=== PATIENT | male | born 1950 | race Caucasian/White ===

== ENCOUNTER 2024-07-29 11:16 | Inpatient (IN) | payer OTHER ==
[2024-07-29 11:40] VITALS: BMI 29.5
[2024-07-29] MEDS ORDERED: ACETAMINOPHEN 325 MG TABLET (FP) ONE (12:41)
[2024-07-29] MEDS: ACETAMINOPHEN 325 MG TABLET (FP) PO ONE (12:43)
[2024-07-29 12:57] LABS: MCHC 31.9 g/dl (32.3-36.5); MEAN PLT VOLUME 9.8 fl (9.4-12.4); RDW 13.4 % (12.2-16.6)
[2024-07-29 12:58] LABS: HEMATOCRIT 40.8 % (40.1-51.0); MEAN CELL VOLUME 89.1 fl (79.0-92.2); PLATELET COUNT 127 x10^3/uL (163-337)
[2024-07-29 13:05] LABS: INR 1.57 (0.83-1.09); PROTHROMBIN TIME (PATIENT) 17.1 SEC (9.7-13.0)
[2024-07-29 13:08] LABS: ACTIVATED PTT 32.6 SECONDS (25.2-36.5)
[2024-07-29 13:20] LABS: POTASSIUM 5.1 mmol/L (3.5-5.1)
[2024-07-29 13:22] LABS: ALBUMIN 3.5 g/dl (3.4-5.0); BLOOD UREA NITROGEN 14.5 mg/dL (7-18); CALCIUM 9.3 mg/dL (8.5-10.1); MAGNESIUM 1.7 mg/dL (1.8-2.4)
[2024-07-29 13:27] LABS: TOT PROT 6.7 g/dl (6.4-8.2)
[2024-07-29 13:32] LABS: BILIRUBIN,TOTAL 0.9 mg/dL (0.2-1)
[2024-07-29] MEDS ORDERED: MAGNESIUM SULFATE IN WATER 2 GM/50 ML IVPB IVPB ONE (14:10)
[2024-07-29] MEDS: MAGNESIUM SULF 50% (8.12 MEQ/2 ML-1 GM VIAL) IVPB ONE (14:22)
[2024-07-29 14:23] LABS: EPI CELLS 4 /uL (0-25.1); HYALINE CASTS 1 /uL (0-3.1); URINE APPEARANCE CLEAR; URINE BACTERIA 5 /uL (0-1359); URINE BILIRUBIN NEGATIVE (NEGATIVE); URINE COLOR YELLOW; URINE GLUCOSE (UA) NEGATIVE (NEGATIVE); URINE KETONE TRACE (NEGATIVE); URINE LEUK ESTERASE NEGATIVE (NEGATIVE); URINE NITRITE NEGATIVE (NEGATIVE); URINE PROTEIN 2+ (NEGATIVE); URINE RBC 21 /uL (0-23.9); URINE WBC 10 /uL (0-25.8)
[2024-07-29] MEDS: FUROSEMIDE 40 MG/4 ML INJECTABLE VIAL IVPUSH ONE (16:59)
[2024-07-29] MEDS: ACETAMINOPHEN 1000 MG/100 ML BAG IVPB PRN (21:31)
[2024-07-29] MEDS: ATORVASTATIN CA 10 MG TABLET (FP) PO SCH (21:32)
[2024-07-29] MEDS: DOCUSATE SODIUM 100 MG CAPSULE (FP) PO SCH (21:32)
[2024-07-29] MEDS: APIXABAN 5 MG TABLET PO SCH (21:32)
[2024-07-30 06:38] LABS: HEMOGLOBIN 12.3 g/dL (13.7-17.5)
[2024-07-30 06:40] LABS: ABSOLUTE IMMATURE GRANULOCYTES 0.01 x10^3/uL (0.0-0.031); BASOPHILS # 0.02 x10^3/uL (0.01-0.08); EOSINOPHIL % 2.3 % (0.8-7.0); EOSINOPHILS # 0.12 x10^3/uL (0.04-0.54); HEMATOCRIT 38.4 % (40.1-51.0); MEAN CELL VOLUME 87.7 fl (79.0-92.2); MEAN PLT VOLUME 10.1 fl (9.4-12.4); MONOCYTE # 0.57 x10^3/uL (0.30-0.82); PLATELET COUNT 132 x10^3/uL (163-337); RDW 13.2 % (12.2-16.6)
[2024-07-30 06:58] LABS: POTASSIUM 3.6 mmol/L (3.5-5.1)
[2024-07-30 07:00] LABS: CALCIUM 8.6 mg/dL (8.5-10.1)
[2024-07-30 07:01] LABS: BLOOD UREA NITROGEN 15.9 mg/dL (7-18)
[2024-07-30 07:04] LABS: CREATININE 0.8 mg/dL (0.55-1.3)
[2024-07-30] MEDS: metoPROLOL SUCCINATE 25 MG TAB.SR.24H (FP) PO SCH (09:27)
[2024-07-30] MEDS ORDERED: amLODIPine BESYLATE 5 MG TABLET (FP) PO SCH (10:00)
[2024-07-30 10:16] LABS: ERYTHROCYTE SEDIMENTATION RATE 7 mm/hr (0-20)
[2024-07-30] MEDS: FUROSEMIDE 40 MG/4 ML INJECTABLE VIAL IVPUSH SCH (11:58)
[2024-07-31] MEDS: EMPAGLIFLOZIN (JARDIANCE) 10 MG TABLET PO SCH (06:43)
[2024-07-31 06:58] LABS: ABSOLUTE IMMATURE GRANULOCYTES 0.01 x10^3/uL (0.0-0.031); BASOPHILS # 0.02 x10^3/uL (0.01-0.08); EOSINOPHIL % 1.6 % (0.8-7.0); HEMATOCRIT 41.3 % (40.1-51.0); HEMOGLOBIN 13.3 g/dL (13.7-17.5); MCHC 32.2 g/dl (32.3-36.5); MEAN CELL VOLUME 86.6 fl (79.0-92.2); MEAN PLT VOLUME 9.6 fl (9.4-12.4); MONOCYTE # 0.54 x10^3/uL (0.30-0.82); MONOCYTE % 8.8 % (5.3-12.2); PLATELET COUNT 139 x10^3/uL (163-337); RDW 13.2 % (12.2-16.6)
[2024-07-31 07:17] LABS: POTASSIUM 3.4 mmol/L (3.5-5.1)
[2024-07-31 07:22] LABS: ALBUMIN 3.6 g/dl (3.4-5.0); BLOOD UREA NITROGEN 17.1 mg/dL (7-18); CALCIUM 9.2 mg/dL (8.5-10.1); MAGNESIUM 1.6 mg/dL (1.8-2.4)
[2024-07-31 07:26] LABS: CREATININE 0.9 mg/dL (0.55-1.3); PHOSPHOROUS 2.6 mg/dL (2.5-4.9)
[2024-07-31 07:27] LABS: TOT PROT 6.7 g/dl (6.4-8.2)
[2024-07-31] MEDS ORDERED: POTASSIUM CHLORIDE ORAL LIQUID 20 MEQ/15 ML PO ONE (08:45)
[2024-07-31] MEDS: MAGNESIUM 2GM/50ML STERILE WATER IVPB IVPB ONE (09:02)
[2024-07-31] MEDS: POTASSIUM CHLORIDE ORAL LIQUID 20 MEQ/15 ML PO ONE (09:03)
[2024-07-31] MEDS: LOSARTAN POTASSIUM 50 MG TABLET PO SCH (09:07)
[2024-07-31] MEDS: SPIRONOLACTONE 25 MG TABLET PO SCH (09:08)
[2024-07-31] MEDS: metoPROLOL SUCCINATE 25 MG TAB.SR.24H (FP) PO ONE (13:24)
[2024-07-31 17:01] LABS: METHADONE, UR NEGATIVE (NEGATIVE); PHENCYCLIDINE,URINE NEGATIVE (NEGATIVE); URINE AMPHETAMINES NEGATIVE (NEGATIVE); URINE BENZODIAZEPINES NEGATIVE (NEGATIVE)
[2024-07-31 17:02] LABS: COCAINE, UR NEGATIVE (NEGATIVE)
[2024-07-31 17:05] LABS: OPIATES, URI NEGATIVE (NEGATIVE); URINE BARBITURATES NEGATIVE (NEGATIVE)
[2024-08-01 06:34] LABS: HEMATOCRIT 43.6 % (40.1-51.0); MCHC 32.1 g/dl (32.3-36.5); MEAN CELL VOLUME 87.9 fl (79.0-92.2); PLATELET COUNT 142 x10^3/uL (163-337); RDW 13.4 % (12.2-16.6)
[2024-08-01 06:51] LABS: POTASSIUM 3.9 mmol/L (3.5-5.1)
[2024-08-01 06:58] LABS: CALCIUM 9.4 mg/dL (8.5-10.1)
[2024-08-01 06:59] LABS: ALBUMIN 3.5 g/dl (3.4-5.0); BLOOD UREA NITROGEN 15.2 mg/dL (7-18)
[2024-08-01 07:02] LABS: CREATININE 0.9 mg/dL (0.55-1.3)
[2024-08-01 07:04] LABS: BILIRUBIN,TOTAL 1.2 mg/dL (0.2-1); TOT PROT 6.7 g/dl (6.4-8.2)
[2024-08-01 08:48] VITALS: BP 124/80; PULSE 80; RESP 18; TEMP 99.1
[2024-08-01] MEDS ORDERED: metoPROLOL SUCCINATE 25 MG TAB.SR.24H (FP) PO ONE (12:00)
== END 2024-08-01 11:37 | disposition home or self-care (01) | DRG 291 ==
LOC: JER 11:16 → JERBED 14:16 → INTOOBSV 14:16 → UNDOADMOB 14:16 → JERBED 14:41 → J4W 16:10 → OBSVTOIN 07-31 12:50
PROVIDERS: ADMIT Internal Medicine; ATTEND Internal Medicine
DX: I11.0 Hypertensive heart disease with heart failure (principal); I50.41 Acute combined systolic (congestive) and diastolic (congestive) heart failure; I31.39 Other pericardial effusion (noninflammatory); E78.5 Hyperlipidemia, unspecified; I48.91 Unspecified atrial fibrillation; E11.9 Type 2 diabetes mellitus without complications; K59.00 Constipation, unspecified; E04.1 Nontoxic single thyroid nodule; D64.9 Anemia, unspecified; I27.20 Pulmonary hypertension, unspecified
CPT/HCPCS: 0241U-QW; 36415; 71045-TC-FY; 71275-TC; 80048; 80053; 80307; 81003; 82962; 83036; 83735; 84100; 84443; 84484; 85025; 85027; 85610; 85651; 85730; 86140; 86850; 86900; 86901; 87086; 93005; 93010; 93306-TC; 99285-25; G0378; Q9967